=== PATIENT | male | born 1980 | race Caucasian/White ===

== ENCOUNTER 2018-04-09 18:47 | Emergency (ER) | payer BC ==
[2018-04-09] MEDS ORDERED: METHYLPREDNISOLONE INJ 125 MG/2 ML SDV IV ONE (19:55)
[2018-04-09] MEDS ORDERED: IPRATROPIUM/ALBUTEROL 0.5-2.5 MG/3 ML AMPUL NEB ONE (19:55)
--- NOTE | 2018-04-09 19:57 | ER Document Report ---
ED Medical Screen (RME) - General Chief Complaint: Flank Pain Stated Complaint: SHORT OF BREATH/FEVER Time Seen by Provider: 04/09/18 19:52 Notes: 37 years old male presents today with fever body aches, cough and substernal chest pain and difficulty in breathing for the last 2 days. With a low pulse oximeter around 89 in room air. She was a former smoker but currently not smoking. Denies any left arm numbness tingling sensation. 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
[2018-04-09] MEDS: ALBUTEROL SULFATE 0.083% NEB 2.5 MG/3 ML AMPUL NEB SCH ×2 (20:47→21:37)
[2018-04-09] MEDS ORDERED: NORMAL SALINE 1000 ML 1,000 ML IV ONE (21:07)
--- NOTE | 2018-04-09 21:46 | RADIOLOGY REPORT (SQ) ---
EXAM DESCRIPTION: XR CHEST 1 VIEW COMPLETED DATE/TME: 04/09/2018 19:56 CLINICAL HISTORY: 37 years, Male, Chest pain and shortness of breath Comparison: None FINDINGS: No focal lung consolidation. Minimal left basilar subsegmental atelectasis. No pleural effusion. No pneumothorax. Cardiac and mediastinal silhouette is unremarkable. No acute osseous abnormality. Soft tissues are unremarkable. IMPRESSION: No acute findings. No focal lung consolidation.
--- NOTE | 2018-04-09 22:18 | EKG REPORT ---
SEVERITY:- ABNORMAL ECG - SINUS RHYTHM PROBABLE LEFT ATRIAL ABNORMALITY PROLONGED QT INTERVAL : Confirmed by: Tosha Wright 09-Apr-2018 22:17:25
[2018-04-09 22:49] LABS: APPEARANCE,URINE SLIGHTLY-CLOUDY; BILIRUBIN,URINE NEGATIVE (NEGATIVE); GLUCOSE, URINE NEGATIVE (NEGATIVE); KETONES,URINE 80 mg/dL (NEGATIVE); LEUKOCYTE ESTERASE,URINE NEGATIVE (NEGATIVE); NITRITE,URINE NEGATIVE (NEGATIVE); PROTEIN,URINE 30 mg/dL (NEGATIVE); URINE SPECIFIC GRAVITY 1.029
[2018-04-09 22:55] LABS: COLOR,URINE YELLOW
[2018-04-09] MEDS ORDERED: KETOROLAC TROMETHAMINE INJ/PF 30 MG/1 ML SDV IV ONE (23:01)
[2018-04-09 23:05] LABS: A TYPE INFLUENZA AG NEGATIVE (NEGATIVE); B INFLUENZA AG NEGATIVE (NEGATIVE)
--- NOTE | 2018-04-09 23:05 | ER Document Report ---
ED General - General Chief Complaint: Flank Pain Stated Complaint: SHORT OF BREATH/FEVER Time Seen by Provider: 04/09/18 19:52 - HPI Notes: Patient presents emergency department for evaluation of a few separate complaints. He states over the last 2 days he has felt febrile and been coughing. He felt somewhat short of breath. He went to an urgent care. They found his oxygen was approximately 92% so they sent him here to the emergency department for reevaluation. The patient has had no nausea or vomiting. He denies any chest pain. He does complain of pain in his right lower back. He states has been present for over a week. This not worsened by movement. He described it as a dull ache. He denies any associated nausea or vomiting, no urinary symptoms. He denies any bowel or bladder incontinence, no saddle anest hesia, no focal numbness or weakness. 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 Patient is normocephalic, atraumatic. Pupils equal round, reactive to light. Neck is supple without meningismus. Heart is regular rate and rhythm. Lungs reveal mild crackles at the left base. No increased work of breathing, good air movement. Abdomen is soft, nontender, normoactive bowel sounds throughout. Extremities without cyanosis, clubbing, edema. Calves are nontender. Peripheral pulses are equal. Skin is warm and dry. Patient is awake, alert, neurological exam is nonfocal. Course - Re-evaluation Re-evalutation: 04/09/18 23:04 Patient presents emergency department for evaluation. This gentleman is an obese former smoker. I do suspect that that combined with the upper respiratory infection is what is keeping his oxygen level is low. He is certainly not below 88%. He shows no signs of respiratory distress. His chest x-ray reveals no acute cardiopulmonary disease. He was given a breathing treatment with some subjective improvement, but the patient is not having any significant wheezing. Urinalysis was ordered to evaluate the patient for his right flank pain. He does not have a blood noted, no red blood cells per high-power field. No family history of stones, his symptoms are not colicky or consistent with kidney stones. Patient monitored here. 04/09/18 23:17 Patient's urinalysis reviewed. Serology reveals a negative influenza. Clinically the patient appears to have a pneumonia. He has crackles in the left base. His oxygen remains around 90% when he is at rest. When you go to talk to the patient he is between 90-94%. He is feeling improved. I do not see any indication for admission in this young gentleman without any major medical issues. I do suspect that his body habitus is contributing. He Campbell has an albuterol inhaler. I will treat him for the pneumonia that clinically I suspect he has. He is given his first dose of Levaquin here. He is also given Toradol for fever and flank pain. He is to follow-up with primary care next week, return to the emergency department with worsening or new concerning symptoms. - Vital Signs Vital signs: Temp Pulse Resp BP Pulse Ox 100.4 F 105 H 18 142/89 H 89 L 04/09/18 19:11 04/09/18 19:11 04/09/18 19:11 04/09/18 19:11 04/09/18 19:11 - Laboratory Laboratory results interpreted by me: 04/09/18 22:20 Urine Protein 30 H Urine Ketones 80 H Urine Blood SMALL H Urine Urobilinogen 4.0 H Discharge - Discharge Clinical Impression: Pneumonia, Flank pain Condition: Stable Disposition: HOME, SELF-CARE Instructions: Toradol Injection ([facility]), Pneumonia ([facility]) Additional Instructions: Use albuterol inhaler, 1-2 puffs every 4-6 hours as needed for difficulty breathing. Take Levaquin as directed until gone, starting tomorrow. Follow-up with primary care next week. Return to the emergency department with worsening or new concerning symptoms of any sort. Referrals: TAMMIE KRUSE MD [ACTIVE STAFF] - Follow up as needed
[2018-04-09] MEDS ORDERED: LEVOFLOXACIN 750 MG TABLET PO ONE (23:16)
[2018-04-10 00:06] VITALS: BP 114/56
== END 2018-04-10 00:08 | disposition home or self-care (01) ==
LOC: ER 18:47
DX: J18.9 Pneumonia, unspecified organism (principal); R10.9 Unspecified abdominal pain; R53.81 Other malaise; R06.02 Shortness of breath; R50.9 Fever, unspecified; Z86.14 Personal history of Methicillin resistant Staphylococcus aureus infection
CPT/HCPCS: 93005; 94640 ×2; 99284; 96361; 96374; 96375; 81001; 87804; 71045; 93010; J2930; J1885; J7030; J7620